=== PATIENT | female | born 1990 | race Caucasian/White ===

== ENCOUNTER 2017-02-18 05:27 | Day surgery (SDC) | payer OTHER ==
[2017-02-18] MEDS ORDERED: CEFAZOLIN 1 GM/D5W RTU 1 GM/50 ML RTUPB IV PRN (05:35)
[2017-02-18 06:14] LABS: ABSOLUTE LYMPHOCYTES (AUTO) 1.8 10^3/uL (0.5-4.7); ABSOLUTE MONOCYTES (AUTO) 0.5 10^3/uL (0.1-1.4); ABSOLUTE NEUT (AUTO) 4.7 10^3/uL (1.7-8.2); BASOPHILS % (AUTO) 0.4 % (0-2); EOSINOPHILS % (AUTO) 0.6 % (0-6); HEMATOCRIT 38.8 % (36.0-47.0); HGB HCT DIFFERENCE 0.2; LYMPHOCYTES % (AUTO) 26.1 % (13-45); MEAN CORPUSCULAR HEMOGLOBIN 27.5 pg (27.0-33.4); MEAN CORPUSCULAR HGB CONC 33.5 g/dL (32.0-36.0); MEAN CORPUSCULAR VOLUME 82 fl (80-97); MONOCYTES % (AUTO) 6.7 % (3-13); RED BLOOD COUNT 4.73 10^6/uL (3.72-5.28); RED CELL DISTRIBUTION WIDTH 12.4 % (11.5-14.0); SEGMENTED NEUTROPHILS % (AUTO) 66.2 % (42-78)
[2017-02-18] MEDS ORDERED: FENTANYL CITRATE INJ/PF 250 MCG/5 ML AMPULE ONE (07:35)
[2017-02-18] MEDS ORDERED: MIDAZOLAM 2 MG/2 ML INJ ONE (07:35)
[2017-02-18] MEDS ORDERED: ACETAMINOPHEN 100 ML IV ONE (07:36)
[2017-02-18] MEDS ORDERED: PROPOFOL INJ 200 MG/20 ML VIAL IV ONE (07:36)
[2017-02-18] MEDS ORDERED: METHYLERGONOVINE MALEATE INJ/PF 0.2 MG/1 ML AMPULE ONE (08:40)
[2017-02-18] MEDS ORDERED: GLYCOPYRROLATE INJ 0.4 MG/2 ML VIAL ONE (09:42)
[2017-02-18] MEDS ORDERED: METOCLOPRAMIDE HCL INJ/PF 10 MG/2 ML SDV ONE (09:42)
[2017-02-18] MEDS ORDERED: LIDOCAINE 2% INJ-PF (20 MG/ML) 10 ML AMPUL ONE (09:42)
[2017-02-18] MEDS ORDERED: ONDANSETRON HCL INJ/PF 4 MG/2 ML SDV ONE (09:42)
[2017-02-18] MEDS ORDERED: RINGERS SOLUTION,LACTATED 1,000 ML IV PRN (09:43)
[2017-02-18] MEDS ORDERED: HYDROMORPHONE HCL INJ/PF 2 MG/ML AMPULE IV PRN (09:44)
[2017-02-18] MEDS ORDERED: IBUPROFEN 800 MG TABLET PO PRN (09:45)
[2017-02-18] MEDS ORDERED: OXYCODONE HCL IR 5 MG TABLET PO PRN ×2 (09:45→09:46)
--- NOTE | 2017-02-18 09:54 | OPERATIVE REPORT E ---
Operative Report NAME: ARIANA COLBY : 1990 AGE: 26Y DATE OF SURGERY: 02/18/2017 ROOM: PREOPERATIVE DIAGNOSIS: MISSED AT 6 WEEKS' GESTATION. POSTOPERATIVE DIAGNOSIS: MISSED AT 6 WEEKS' GESTATION. OPERATION: Suction D and C. SURGEON: CEDRICK CAPONE M.D. ANESTHESIA: General endotracheal. ESTIMATED BLOOD LOSS: 50 mL. FINDINGS: Normal external genitalia and vagina. The uterus was retroverted and enlarged to 6 to 8 weeks' size. A large amount of products of conception was in the uterus. After the ending of the procedure, the uterus was involuted normally. DESCRIPTION OF PROCEDURE: After discussing risks, benefits, and alternatives of the procedure and obtaining informed consent, patient was taken to the operating room where anesthesia was achieved. She was positioned in the dorsal lithotomy position, prepped and draped in the usual standard fashion. Bladder was drained via in-and-out catheterization. A speculum was placed in the vagina and the cervix visualized. The posterior aspect of the cervix was grasped with a single-tooth tenaculum. The cervix was serially dilated to allow for passage of a #8 curved curette. Suction D and C was performed in the standard fashion until the cavity was clean. A blunt curette was used to assure that it was clean. A ampule of Methergine was given IM. The tenaculum was removed and hemostasis assured. The uterus was palpated and was involuted normally. All instruments removed from the vagina and the patient was taken out of dorsal lithotomy, awakened from anesthesia, and to recovery in stable condition. All sponge, needle, lap and instrument counts were correct x2. DICTATING PHYSICIAN: CEDRICK CAPONE M.D. [id number] PHY#: [id number] ID: [id number] JOB#: [id number] ACCT: [id number] cc:CEDRICK CAPONE M.D. > MTDD
[2017-02-18 10:54] VITALS: BP 109/64
[2017-02-21 12:37] LABS: PTT-LA 34.6 sec (0.0-43.6); THROMBIN TIME 16.6 sec (0.0-20.9)
[2017-02-21 13:03] LABS: DILUTE RUSSELL VIPOR VENOM 39.8 sec (0.0-47.0); LUPUS PANEL INTERPRETATION Comment: (.)
== END 2017-02-18 10:54 | disposition home or self-care (01) ==
LOC: OROUT 05:27
PROVIDERS: ATTEND Specialist
PROC: 10D17ZZ Extraction of Products of Conception, Retained, Via Natural or Artificial Opening (ICD-10-PCS; principal; 2017-02-18 07:30)
DX: O02.1 Missed abortion (principal); Z79.51 Long term (current) use of inhaled steroids; J45.909 Unspecified asthma, uncomplicated; Z88.0 Allergy status to penicillin; Z87.891 Personal history of nicotine dependence; Z87.440 Personal history of urinary (tract) infections; Z87.442 Personal history of urinary calculi
CPT/HCPCS: 86147 ×3; 86900; 86901; 36415; 86850; 85025; 86225; 83520; 86235 ×4; 88305 ×2; 59820; J2250; J0690; J3010; J2210; J2765; J2405; J2704; J3490; J0131; 1965

== ENCOUNTER → 2017-03-15 | Outpatient (CLI) | payer OTHER | LOC: OD 14:55 | PROVIDERS: ATTEND Specialist | DX: Z32.02 Encounter for pregnancy test, result negative (principal) | CPT/HCPCS: 36415; 84702 ==

== ENCOUNTER → 2017-03-17 | Outpatient (CLI) | payer OTHER | LOC: OD 11:41 | PROVIDERS: ATTEND Specialist | DX: O20.0 Threatened abortion (principal) | CPT/HCPCS: 36415; 84702 ==

== ENCOUNTER → 2017-04-22 | Outpatient (CLI) | payer OTHER | LOC: OD 13:49 | PROVIDERS: ATTEND Specialist | DX: O20.0 Threatened abortion (principal) | CPT/HCPCS: 36415; 84702 ==